=== PATIENT | female | born 1990 | race Caucasian/White ===

== ENCOUNTER 2023-10-16 07:42 | Inpatient (IN) | payer OTHER ==
[2023-10-13 15:20] VITALS: BMI 35.5
[2023-10-16] MEDS ORDERED: OXYTOCIN 10 UNIT/ML 1 ML VIAL IM PRN (08:51)
[2023-10-16] MEDS ORDERED: LIDOCAINE 0.5% (PF) 5 MG/ML (50 ML SDV) SQ PRN (08:51)
[2023-10-16] MEDS ORDERED: METHYLERGONOVINE 0.2 MG/ML 1 ML AMP IM PRN (08:51)
[2023-10-16] MEDS ORDERED: TRANEXAMIC 1,000 MG/100ML-NACL 1,000 MG in EMPTY BAG 1 BAG IV PRN (08:51)
[2023-10-16] MEDS ORDERED: TERBUTALINE 1 MG/ML VIAL SQ PRN (08:51)
[2023-10-16] MEDS ORDERED: CARBOPROST TROMETHAMINE 250 MCG/ML 1 ML AMP IM PRN (08:51)
[2023-10-16] MEDS ORDERED: miSOPROStoL 200 MCG TAB PO PRN (08:51)
[2023-10-16] MEDS ORDERED: OXYTOCIN 30 UNITS/500 ML NS 30 UNIT in SALINE 1 500ML.BAG IV SCH ×2 (09:00→12:00)
[2023-10-16] MEDS: CITRIC ACID-SODIUM CITRATE 15 ML CUP PO ONE (10:20)
[2023-10-16] MEDS ORDERED: KETOROLAC 15 MG/ML 1 ML VIAL ONE (10:39)
[2023-10-16] MEDS ORDERED: MORPHINE SULFATE (PF) 0.3 MG/0.3 ML SYR ONE (10:39)
[2023-10-16] MEDS ORDERED: OXYTOCIN 30 UNITS/500 ML NS BAG IV ONE (10:39)
--- NOTE | 2023-10-16 10:44 | P.HPOB ---
History of Present Illness H&P Date: 10/16/23 Chief Complaint: 39-0/7 weeks, multiple previous sections The patient is a 33-year-old 7 para 5015 with 5 previous sections who presents to labor and delivery for repeat section. On labor and delivery, all signs reassuring with a category 1 heart rate tracing. 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 She also falls into the category of advanced maternal age and declined trisomy testing. Group B strep status is negative. Obstetrical history: 7 para 5015 with 5 term sections and one early miscarriage. EDC of 10/23/2023 was established by aide Pemberton And confirmed by 20 week ultrasound. Laboratory workup demonstrates a blood type of B+ with a negative antibody screen. Rubella status is immune. Remainder of the laboratory workup was within normal limits. Early Glucola and second trimester Glucola were both normal. Group B strep status is negative. Gynecologic history: Unremarkable with no history of infections to include STDs aside from remote history of HSV. Review of Systems Review of systems is confined to history of present illness. Past Medical History Past Medical History: No Reported History History of Any Multi-Drug Resistant Organisms: None Reported Past Surgical History: Section Additional Past Surgical History / Comment(s): Section X5. Past Anesthesia/Blood Transfusion Reactions: No Reported Reaction Past Psychological History: No Psychological Hx Reported Smoking Status: Never smoker Past Alcohol Use History: None Reported Past Drug Use History: None Reported - Past Family History Mother Family Medical History: No Reported History Medications and Allergies Home Medications Medication Instructions Recorded Confirmed Type Vit No.179/Iron/Folic 1 each PO DAILY 10/13/23 10/16/23 History [ Tablet] Allergies Allergy/AdvReac Type Severity Reaction Status Date / Time No Known Allergies Allergy Verified 10/16/23 08:47 Exam Vital Signs Temp Pulse Resp 10/16/23 08:46 95.5 F L 93 18 Intake and Output 10/15/23 10/16/23 10/16/23 22:59 06:59 14:59 Other: Weight 99.79 kg In general, this is a well-developed, well-nourished white female in no acute distress. Her heart has a regular rhythm and rate without murmur. Her lungs clear to auscultation bilaterally in all horta. Her abdomen is gravid, nondistended, has normal active bowel sounds, soft, nontender, without any palpable masses aside from uterine fundus. Her extremities are without any cyanosis, clubbing, or significant edema and are nontender to palpation bilaterally. Digital cervical examination is deferred. Assessment and Plan (1) Term Current Visit: Yes Status: Acute Code(s): Z34.90 - ENCNTR FOR SUPRVSN OF NORMAL , UNSP, UNSP TRIMESTER SNOMED Code(s): 04615984 (2) Previous section Current Visit: Yes Status: Acute Code(s): Z98.891 - HISTORY OF UTERINE SCAR FROM PREVIOUS SURGERY SNOMED Code(s): 978902551 Plan: The patient is admitted for repeat low transverse section. The risks and complications have been thoroughly discussed especially given the fact that she's had 5 previous sections. She has understood all these risks and agreed to proceed. She has declined permanent sterilization.
--- NOTE | 2023-10-16 11:50 | P.OP ---
Date of Procedure: 10/16/23 Preoperative Diagnosis: #1. 39-0/7 weeks intrauterine #2. Previous section x5 #3. Advanced maternal age Postoperative Diagnosis: Same Procedure(s) Performed: #1. Repeat low transverse section Anesthesia: spinal Surgeon: Venkat Hernandez Administrative Law Judge #1: Lorna Zamudio Estimated Blood Loss (ml): 430 IV fluids (ml): 400 Urine output (ml): 200 Pathology: none sent Condition: stable Disposition: floor Operative Findings: Intraoperatively, there was a significant amount of scarring at the fascia and rectus muscles. The lower uterine segment was extraordinarily thin, almost tra nslucent. Remainder of the uterus as well as the tubes and ovaries were normal to inspection. She was delivered of a viable 7 lbs. 12 oz. baby boy with Apgars of 9 at 1 minute and 9 at 5 minutes delivered in the right occiput transverse position. The placenta was delivered manually, intact, and grossly normal with a grossly normal three-vessel cord. I was able to reapproximate the uterine incision though the tissue was extraordinarily delicate in the lower uterine segment. Urine remained clear throughout the entire case. The bladder was scarred relatively high on the low uterine segment as well. Description of Procedure: The patient was prepped and draped in usual fashion after spinal anesthesia was administered by the anesthesiologist. A Pfannenstiel incision was made through pre-existing scar and extended into the abdominal cavity with moderate difficulty secondary to significant thickening and scarring at the level of the fascia and rectus muscles. Ultimately, the abdomen was entered safely. The bladder peritoneum was noted to be scarred fairly high on the extraordinarily thin lower uterine segment and was elevated, incised, and reflected distally. In the process of reflecting the bladder the lower uterine segment was opened as well. The amniotic membranes were ruptured for clear fluid and the incision was extended on its own from the force of the membranes. The head was delivered up and through the incision where the nose and mouth were thoroughly suctioned. Remainder of the was delivered onto the field where the cord was doubly clamped, cut, and infant passed resuscitative measures with weight and Apgars as noted above. The placenta was delivered manually and intact as noted above. The uterus was exteriorized and the interior cavity of the uterus swept of any remaining placental or membranous fragments with a laparotomy sponge. The margins of the uterine incision were grasped with Finch clamps with again significant note to the thinness of the lower uterine segment, especially the lower leaf. The incision was closed in 2 layers with the first layer being a running locking stitch of 0 chromic catgut from margin to margin. The second was a running imbricating stitch closed in a mattress format. There was one point of bleeding near the right angle of the incision which was made hemostatic with a uqpvah-ue-juyel stitch of 0 chromic catgut. Urine remained clear throughout though the bladder did have to be further dissected after delivery of the infant. The posterior cul-de-sac was suctioned with a guard followed by laparotomy sponge. The uterus was replaced within the abdominal cavity and the gutters swept of any remaining blood, fluid, or clot. Reexamination of the uterine incision demonstrated excellent hemostasis. The parietal peritoneum was loosely reapproximated in the layer of muscles examined and made hemostatic with the Bovie. The fascia was closed with 2 running stitches of 0 Vicryl proceeding from lateral margins to the midpoint. The subcutaneous tissues were irrigated, made hemostatic with the Bovie, and reapproximated with a running stitch of 30 plain catgut. The skin was reapproximated with a running subcuticular stitch of 4-0 Vicryl followed by half-inch Steri-Strips placed with Mastisol. Quantitative blood loss for the case was 430 mL. There were no complications. All sponge, instrument, and needle counts were correct. The patient tolerated the procedure well and proceeded to the recovery room in stable condition. Both mother and infant are resting comfortably in recovery.
[2023-10-16] MEDS ORDERED: diphenhydrAMINE 50 MG/ML 1 ML VIAL IVP PRN ×2 (11:51)
[2023-10-16] MEDS ORDERED: diphenhydrAMINE 50 MG CAP PO PRN (11:51)
[2023-10-16] MEDS ORDERED: NALOXONE 0.4 MG/ML 1 ML VIAL IV PRN (11:51)
[2023-10-16] MEDS ORDERED: METOCLOPRAMIDE 5 MG/ML 2 ML VIAL IVP PRN (11:51)
[2023-10-16] MEDS ORDERED: SIMETHICONE 80 MG CHEWABLE PO PRN (11:51)
[2023-10-16] MEDS ORDERED: ZOLPIDEM 5 MG TAB PO PRN (11:51)
[2023-10-16] MEDS ORDERED: diphenhydrAMINE 25 MG CAP PO PRN (11:51)
[2023-10-16] MEDS ORDERED: LANOLIN CREAM 5 GM TUBE TOPICAL PRN (11:51)
[2023-10-16] MEDS ORDERED: ONDANSETRON 4 MG/2 ML VIAL IVP PRN (11:51)
[2023-10-16] MEDS: ACETAMINOPHEN TAB 500 MG TAB PO SCH (15:14)
[2023-10-16] MEDS: KETOROLAC 15 MG/ML 1 ML VIAL IVP PRN (17:23)
[2023-10-16 18:49] LABS: Basophils % (A) 0 %; Eosinophils # (A) 0.1 k/uL (0-0.7); Eosinophils % (A) 1 %; HCT 37.9 % (34.0-46.0); HGB 12.9 gm/dL (11.4-16.0); Lymphocytes # (A) 1.3 k/uL (1.0-4.8); Lymphocytes % (A) 14 %; MCH 31.3 pg (25.0-35.0); MCHC 34.1 g/dL (31.0-37.0); MCV 91.9 fL (80.0-100.0); Mean Platelet Volume 9.6; Monocytes # (A) 0.4 k/uL (0-1.0); Monocytes % (A) 5 %; Neutrophils % (A) 78 %; Platelet Count 157 k/uL (150-450); RBC 4.12 m/uL (3.80-5.40); RDW 14.1 % (11.5-15.5)
[2023-10-16] MEDS: SENNOSIDES-DOCUSATE SODIUM 1 EACH TAB PO SCH (19:55)
[2023-10-16] MEDS: LACTATED RINGERS 1,000 ML IV SCH ×2 (21:00)
[2023-10-16] MEDS: IBUPROFEN 600 MG TAB PO SCH (21:01)
[2023-10-17 06:53] LABS: Basophils % (A) 0 %; Eosinophils # (A) 0.1 k/uL (0-0.7); Eosinophils % (A) 1 %; HCT 34.2 % (34.0-46.0); HGB 11.7 gm/dL (11.4-16.0); Lymphocytes # (A) 1.5 k/uL (1.0-4.8); Lymphocytes % (A) 14 %; MCHC 34.3 g/dL (31.0-37.0); MCV 90.3 fL (80.0-100.0); Mean Platelet Volume 8.4; Monocytes # (A) 0.5 k/uL (0-1.0); Monocytes % (A) 5 %; Neutrophils # (A) 8.1 k/uL (1.3-7.7); Neutrophils % (A) 78 %; Platelet Count 144 k/uL (150-450); RBC 3.79 m/uL (3.80-5.40); RDW 14.2 % (11.5-15.5); WBC 10.3 k/uL (3.8-10.6)
--- NOTE | 2023-10-17 11:03 | P.PNOBGPC ---
Subjective - Subjective Principal diagnosis: s/p repeat section Interval history: The patient is doing well this morning and had no acute events overnight. She has no complaints this morning. She reports minimal lochia, passing flatus, voiding without difficulty, ambulating, and eating/drinking without nausea or vomiting. She is her without difficulty. She denies chest pain, shortness of breathing, fevers, or chills overnight. She denies pain or swelling in the legs. Patient reports: Reports appetite normal, Reports voiding normally, Reports pain well controlled : doing well, nursing well Objective - Vital Signs Latest vital signs: Vital Signs Temp Pulse Resp BP Pulse Ox 10/17/23 09:18 97.4 F L 68 16 95/63 98 10/17/23 04:00 58 L 16 96/60 96 10/17/23 00:00 98.1 F 71 16 95/61 97 10/16/23 20:00 97.6 F 77 16 117/68 97 10/16/23 16:00 97.8 F 66 17 109/71 98 10/16/23 13:43 78 16 109/58 99 10/16/23 12:59 75 16 105/58 98 10/16/23 12:43 96.2 F L 79 16 105/62 98 10/16/23 12:28 80 17 102/58 99 10/16/23 12:13 85 17 102/55 98 10/16/23 11:58 90 17 106/54 100 10/16/23 11:43 97.2 F L 90 17 109/56 98 Intake and Output 10/16/23 10/17/23 10/17/23 22:59 06:59 14:59 Output Total 1000 750 Balance -1000 -750 Output: Urine 1000 750 Uretheral (Genao) 50 - Exam Extremities: Present: normal Abdomen: Present: soft Incision: Present: normal, dry, intact Uterus: Present: normal - Labs Labs: Abnormal Lab Results - Last 24 Hours (Table) 10/17/23 Range/Units 06:39 RBC 3.79 L (3.80-5.40) m/uL Plt Count 144 L (150-450) k/uL Neutrophils # 8.1 H (1.3-7.7) k/uL Assessment and Plan Assessment: 33 year old now POD#1 s/p scheduled repeat section Plan: 1. Postoperative. Patient meeting postoperative milestones appropriately. Continue to monitor. 2. Viable male infant at bedside, doing well, nursing well. Will perform circumcision today, patient consented. Dispo: Anticipate discharge home tomorrow.
[2023-10-18 09:10] VITALS: BP 113/64; PULSE 72; RESP 17; TEMP 97.5
--- NOTE | 2023-10-18 09:41 | P.DS ---
Providers Date of admission: 10/16/23 08:13 Expected date of discharge: 10/18/23 Attending physician: Venkat Hernandez Primary care physician: Stated None Hospital Course: 33 year old now POD#2 s/p scheduled repeat section. The patient is doing well this morning and had no acute events overnight. She has no complaints this morning. She reports minimal lochia, passing flatus, voiding without difficulty, ambulating, and eating/drinking without nausea or vomiting. doing well at bedside, s/p circumcision. She denies chest pain, shortness of breathing, fevers, or chills overnight. She denies pain or swelling in the l egs. Postoperative restrictions are reviewed with the patient including pelvic rest for 6 weeks, no lifting heavier than 15 pounds for 6 weeks. The patient is encouraged to call the office if she experiences any heavy bleeding, foul- smelling discharge, breast complaints, or any if she has any other concerns. She will follow up in the office with Dr. Hernandez in 2 weeks for postoperative exam. Patient will be discharged home with 3-day supply of Oxyocodone as well as Motrin and Tylenol. All questions are answered. Assessment: 33 year old now POD#2 s/p scheduled repeat section. Patient Condition at Discharge: Good Plan - Discharge Summary Discharge Rx Participant: No New Discharge Prescriptions: New oxyCODONE HCL [Roxicodone] 5 mg PO Q6HR PRN 3 Days #12 tab PRN Reason: Breakthrough Pain Ibuprofen [Motrin] 600 mg PO Q6HR PRN #30 tab PRN Reason: Mild Pain (Scale 1 To 3) Acetaminophen Tab [Tylenol] 650 mg PO Q6H PRN #30 tab PRN Reason: Mild Pain (Scale 1 To 3) No Action Vit No.179/Iron/Folic [ Tablet] 1 each PO DAILY Discharge Medication List Vit No.179/Iron/Folic [ Tablet] 1 each PO DAILY 10/13/23 [History] Acetaminophen Tab [Tylenol] 650 mg PO Q6H PRN #30 tab 10/18/23 [Rx] Ibuprofen [Motrin] 600 mg PO Q6HR PRN #30 tab 10/18/23 [Rx] oxyCODONE HCL [Roxicodone] 5 mg PO Q6HR PRN 3 Days #12 tab 10/18/23 [Rx] Follow up Appointment(s)/Referral(s): Venkat Hernandez MD [STAFF PHYSICIAN] - 2 Weeks (Incision check) Activity/Diet/Wound Care/Special Instructions: Instructions 1. Do not begin any exercise program for 3 weeks. 2. Do not resume sexual relations for 6 weeks or longer if uncomfortable. 3. You may take tub baths or showers at any time. 4. You may use tampons if desired after 6 weeks. 5. Keep any areas repaired with stitches clean and dry. 6. If you are not nursing, wear a good fitting, supportive bra during the day and limit fluid intake for at least 1 week to prevent breast engorgement. 7. Call the office, , within the next week to make appointment for your 6 week checkup if it has not already been made. 8. Report any of the following occurrences to the doctor promptly: a. Heavy, excessive bleeding b. Chills, fever c. Burning or frequency of urination d. Pain or redness and breasts if nursing e. Increasing pain or swelling of vulva (stitches). In addition to the above instructions, the following additional should be followed: 1. No heavy lifting or straining (exercising) until after 6 week checkup. 2. Keep abdominal incision clean and dry: You may wear a dressing if more comfortable. 3. Make office appointment for 2 weeks after delivery date. Discharge Disposition: HOME SELF-CARE
--- NOTE | 2023-11-01 18:39 | P.PN ---
Progress Note - Text 10/17/23 622am 33-year-old female status post with spinal Duramorph. Patient seen and evaluated for postop pain control, patient has a VAS of 2 with no complains of nausea vomiting minimal pruritus.
== END 2023-10-18 14:10 | disposition home or self-care (01) | DRG 540 ==
LOC: 4FBP 08:13
PROVIDERS: ADMIT Obstetrics & Gynecology; ATTEND Obstetrics & Gynecology
PROC: 10D00Z1 Extraction of Products of Conception, Low, Open Approach (ICD-10-PCS; principal; 2023-10-16 10:59)
DX: O34.211 Maternal care for low transverse scar from previous cesarean delivery (principal); O32.2XX0 Maternal care for transverse and oblique lie, not applicable or unspecified; Z37.0 Single live birth; Z87.59 Personal history of other complications of pregnancy, childbirth and the puerperium; Z3A.39 39 weeks gestation of pregnancy
CPT/HCPCS: 85025; 86850; 86900; 86901